=== PATIENT | male | born 1970 | race Caucasian/White ===

== ENCOUNTER 2017-07-08 21:06 | Emergency (ER) | payer OTHER ==
--- NOTE | 2017-07-08 21:16 | EDPHY ---
H & P Stated Complaint: Palpitations, left arm paresthesia Time Seen by Provider: 07/08/17 21:15 HPI/ROS: CHIEF COMPLAINT: Weeks of palpitations, left arm paresthesia HISTORY OF PRESENT ILLNESS: The patient has a several week history of palpitations. He denies any history of chest pain or shortness of breath. The patient did get a CT calcium score done as an outpatient which was elevated. He is scheduled to see Cardiology in the . The patient reports he has been vigorously exercising without any chest pain or shortness of breath. He has no cardiac risk factors aside from mild hyperlipidemia. He takes no medications for this condition. Tonight the patient developed some paresthesias in his left arm and anxiety surrounding his abnormal calcium score. This prompted his visit to the emergency department. The patient denies any complaints of headache, neck pain, recent fall or trauma. The patient denies any additional complaints of numbness or weakness. The patient reports a general sensation of decreased sensation throughout the left arm. REVIEW OF SYSTEMS: A comprehensive 10 point review of systems is otherwise negative aside from elements mentioned in the history of present illness. Source: Patient - Personal History Current Tetanus/Diphtheria Vaccine: Yes Current Tetanus Diphtheria and Acellular Pertussis (TDAP): Yes - Medical/Surgical History Hx Asthma: No Hx Chronic Respiratory Disease: No Hx Diabetes: No Hx Cardiac Disease: No Hx Renal Disease: No Hx Cirrhosis: No Hx Alcoholism: No Hx HIV/AIDS: No Hx Splenectomy or Spleen Trauma: No Other PMH: left ankle surgery - Social History Smoking Status: Never smoked - Physical Exam Exam: General Appearance: Alert, anxious, no acute distress Eyes: Pupils equal and round no pallor or injection ENT, Mouth: Mucous membranes moist Respiratory: There are no retractions, lungs are clear to auscultation Cardiovascular: Regular rate and rhythm Gastrointestinal: Abdomen is soft and nontender, no masses, bowel sounds normal Neurological: A&O, normal motor function, patient reports decreased sensation to light touch in the left arm however he is noted to have intact sensation to light touch in pain Skin: Warm and dry, no rashes Musculoskeletal: Neck is supple nontender Extremities: symmetrical, full range of motion Constitutional: Initial Vital Signs Temperature (C) 36.5 C 07/08/17 21:07 Heart Rate 92 07/08/17 21:07 Respiratory Rate 18 07/08/17 21:07 Blood Pressure 148/91 H 05/15/18 21:07 O2 Sat (%) 94 07/08/17 21:07 O2 Delivery Mode Room Air Allergies/Adverse Reactions: No Known Allergies Allergy (Verified 07/08/17 21:08) Home Medications: Medication Instructions Recorded NK [No Known Home Meds] 07/08/17 Medical Decision Making - Diagnostics EKG Interpretation: EKG: Complete interpretation has been separately recorded in the [employer] archive. Summary impression: Sinus rhythm, rate 85, no ST segment elevation or depression. Imaging Results: Imaging Impressions Chest X-Ray 07/08/17 21:28 Impression: Normal chest x-ray. ED Course/Re-evaluation: The patient presents to the ED with several weeks of palpitations and a recent abnormal calcium score. I find the patient's upper extremity examination to be normal without evidence of significant sensory abnormality or weakness. Patient's EKG demonstrates no evidence of ischemia. The patient has been exercising significantly, playing hockey, hiking up mountains over the past several days without any chest pain or shortness of breath. The patient's troponin is also normal. His chest x-ray demonstrates no evidence of an abnormal mediastinum. His vascular examination demonstrates some pulses bilaterally. I do feel the patient can be discharged from the emergency department. I have instructed the patient to follow up with Cardiology as scheduled. The patient has been advised to return to the ED for the development of any exertional chest pain or shortness of breath. I re-evaluated the patient at 10:10 p.m.. He is comfortable going home. I have discussed with him limitations of our workup in the emergency department. He is given customary return precautions. He has scheduled follow-up with Cardiology for further evaluation of his abnormal calcium score. Differential Diagnosis: Differential diagnosis considered includes peripheral neuropathy, vasospasm, acute coronary syndrome, anxiety reaction, aortic dissection - Data Points Laboratory Results: Laboratory Results 07/08/17 21:15 07/08/17 21:15 07/08/17 07/08/17: 21: WBC 8.76 10^3/uL 10^3/uL (3.80-9.50) RBC 5.56 10^6/uL 10^6/uL (4.40-6.38) Hgb 16.7 g/dL g/dL (13.7-17.5) Hct 49.5 % % (40.0-51.0) MCV 89.0 fL fL (81.5-99.8) MCH 30.0 pg pg (27.9-34.1) MCHC 33.7 g/dL g/dL (32.4-36.7) RDW 13.2 % % (11.5-15.2) Plt Count 247 10^3/uL 10^3/uL (150-400) MPV 8.3 fL L fL (8.7-11.7) Neut % (Auto) 67.4 % % (39.3-74.2) Lymph % (Auto) 21.2 % % (15.0-45.0) [place] % (Auto) 9.6 % % (4.5-13.0) Eos % (Auto) 0.7 % % (0.6-7.6) Baso % (Auto) 0.9 % % (0.3-1.7) Nucleat RBC Rel Count 0.0 % % (0.0-0.2) Absolute Neuts (auto) 5.90 10^3/uL 10^3/uL (1.70-6.50) Absolute Lymphs (auto) 1.86 10^3/uL 10^3/uL (1.00-3.00) Absolute Monos (auto) 0.84 10^3/uL H 10^3/uL (0.30-0.80) Absolute Eos (auto) 0.06 10^3/uL 10^3/uL (0.03-0.40) Absolute Basos (auto) 0.08 10^3/uL 10^3/uL (0.02-0.10) Absolute Nucleated RBC 0.00 10^3/uL 10^3/uL (0-0.01) Immature Gran % 0.2 % % (0.0-1.1) Immature Gran # 0.02 10^3/uL 10^3/uL (0.00-0.10) Sodium 142 mEq/L mEq/L (135-145) Potassium 4.0 mEq/L mEq/L (3.3-5.0) Chloride 100 mEq/L mEq/L (97-110) Carbon Dioxide 28 mEq/l mEq/l (22-31) Anion Gap 14 mEq/L mEq/L (8-16) BUN 19 mg/dL mg/dL (7-23) Creatinine 1.1 mg/dL mg/dL (0.7-1.3) Estimated GFR > 60 Glucose 101 mg/dL H mg/dL (70-100) Calcium 9.8 mg/dL mg/dL (8.5-10.4) Troponin I < 0.012 ng/mL ng/mL (0.000-0.034) Departure - Departure Disposition: Home, Routine, Self-Care Clinical Impression: Paresthesia of left arm Condition: Fair Instructions: Heart Palpitations (ED) Additional Instructions: 1. Based upon the testing done in the Emergency Department today we see no evidence of a heart attack. 2. We are unable to fully exclude coronary artery disease based upon the testing available in the Emergency Department. 3. For this reason, we would like you to follow up with Cardiology as scheduled 4. Please return to the Emergency Department immediately for any recurrent chest pain, difficulty breathing or other concerns. Referrals: Fly Beck MD [Primary Care Provider] - As per Instructions Lavelle Davenport MD [Medical Doctor] - As per Instructions
--- NOTE | 2017-07-08 21:17 | CPEKG ---
Heart Rate: 85 RR Interval: 706 P-R Interval: 160 QRSD Interval: 90 QT Interval: 372 QTC Interval: 443 P [place]: 76 QRS [place]: -28 T Wave [place]: 36 EKG Severity - OTHERWISE NORMAL ECG - EKG Impression: SINUS RHYTHM Electronically Signed By: Rehan Germain 08-Jul-2017 22:06:33
[2017-07-08 21:34] LABS: PLATELET COUNT 247 10^3/uL (150-400)
[2017-07-08 22:25] VITALS: BP 129/83
== END 2017-07-08 22:25 | disposition home or self-care (01) ==
DX: R20.2 Paresthesia of skin (principal)